=== PATIENT | female | born 1965 | race Caucasian/White ===

== ENCOUNTER 2018-03-18 21:35 | Observation (INO) ==
[2018-03-18 22:08] LABS: Basophils % 0.1 %; Eosinophils # 0.1 K/mcL (0.0-0.6); Eosinophils % 0.8 %; Hematocrit 40.6 % (35.3-44.9); Hemoglobin 13.6 g/dL (11.5-15.4); Immature Granulocytes % 0.7 % (0-4); Lymphocytes # 1.5 K/mcL (0.6-4.6); Lymphocytes % 16.3 %; Mean Corpuscular HGB Conc 33.5 g/dL (31.6-35.5); Mean Corpuscular Hemoglobin 30.4 pg (28.0-33.3); Mean Corpuscular Volume 90.6 fL (83.0-100.0); Mean Platelet Volume 9.3 fL (9.4-12.4); Monocytes # 0.4 K/mcL (0.0-1.3); Monocytes % 4.9 %; Neutrophils # 6.9 K/mcL (1.6-8.9); Platelet Count 179 K/mcL (140-400); Red Blood Count 4.48 M/mcL (3.82-4.97); Red Cell Distribution Width 13.2 % (11.5-14.5); Segmented Neutrophils % 77.2 %
[2018-03-18 22:14] LABS: Prothrombin Time 11.2 Seconds (9.4-12.1)
[2018-03-18 22:17] LABS: Activated Partial Thrombo Time 29.2 Seconds (26.0-36.0)
--- NOTE | 2018-03-18 22:18 | Emergency Department Note ---
Disposition Clinical Impression: Palpitations Chest pain Qualifiers: Chest pain type: unspecified Qualified Code(s): R07.9 - Chest pain, unspecified Disposition: Admitted As Inpatient Condition: Fair Referrals: Bala Barrera MD [Primary Care Provider] - Forms: ED Satisfaction Letter Time of Disposition: 23:20 Chest Pain HPI - General Chief Complaint: ED Chest Pain Stated Complaint: cp Time Seen by Provider: 03/18/18 21:37 Source: patient Limitations: no limitations - History of Present Illness HPI Narrative: Patient is a 53-year-old female with a past medical history of hyperparathyroidism, high cholesterol, fibromyalgia, manic depression, chronic kidney stones, and SVT which was treated with an ablation 2 years ago in 2016. She presents today after she had an episode where she felt like her heart was racing at 9 PM which was accompanied by some chest pain in her left chest that radiated up into her jaw and down into her left arm rated as a 9 out of 10 in severity lasting seconds and accompanied by shortness of breath. She denies diaphoresis nausea vomiting and abdominal pain. She states that she has had a lithotripsy yesterday for some kidney stones. But was feeling pretty great today until this happened. She also notes that over the last few weeks she has had several headaches and when she checks her blood pressure is elevated, she also states that her blood pressure she remembers is being 195/110 regular before her lithotripsy yesterday. She denies fevers or chills headache abdominal pain nausea vomiting diarrhea constipation. She was never a smoker she does not drink and she denies any illicit drugs including marijuana. Patient took an aspirin before she came into the department. Severity scale (1-10): 1 - Related Data Allergies Allergy/AdvReac Type Severity Reaction Status Date / Time No Known Allergies Allergy Verified 03/18/18 21:45 Constitutional: Denies: fever, chills, weakness, weight change ENT ED: Denies: throat pain Cardiovascular: Reports: chest pain, palpitations Respiratory: Denies: cough, dyspnea, wheezes Gastrointestinal: Denies: abdominal pain, nausea, vomiting, diarrhea, constipation Genitourinary: Reports: urgency. Denies: dysuria, frequency Neurological: Denies: headache, weakness, numbness, paresthesias Chest Pain PMH - Past Medical History Medical history: Reports: hyperlipidemia, myocardial infarction, SVT - Social History Smoking Status: Never smoker Alcohol use: Reports: none Drug use: Reports: none Physical Exam - General Limitations: no limitations General appearance: alert - Head Head exam: atraumatic, normocephalic - Eye Eye exam: Present: normal appearance, PERRL - ENT ENT exam: normal exam, normal oropharynx, mucous membranes moist - Neck Neck exam: Present: normal inspection - Chest Chest inspection: Present: normal inspection, symmetric chest wall rise. Absent : tenderness, rash - Respiratory Respiratory exam: Present: normal lung sounds bilaterally. Absent: respiratory distress, wheezes - Cardiovascular Cardiovascular exam: Present: regular rate, normal rhythm - Expanded Cardiovascular Exam Peripheral pulses: 2+: radial (R), radial (L), dorsalis pedis (R), dorsalis pedis (L) - Abdominal Exam Abdominal exam: Present: soft, Non-Tender, normal bowel sounds. Absent: tenderness, distention - Neurological Exam Neurological exam: Present: alert, oriented X3 - Psychiatric Psychiatric exam: Present: normal affect, normal mood - Skin Skin exam: Present: warm, dry, intact Course Course Narrative: Patient presents tonight after her first episode of a rapid heart rate since having her ablation in 2015, this episode lasted for a few seconds and she is now presenting to the emergency department with a normal EKG. She is no longer experiencing any chest pain, and her heart rate is within normal limits. We will perform a chest pain workup to rule out any acute causes. We will then instruct her to follow up with her primary care physician and her petrophysical engineer for further management. - Reevaluation(s) Reevaluation #1: After informing the patient that her workup was largely normal, she related to me that she is very concerned because she has never had pain with any of her previous episodes and she would prefer to be admitted for observation in the event that she has another episode of the fast heart rate. Vital Signs Temperature 98.1 F 03/18/18 21:40 Pulse Rate 85 03/18/18 21:40 Respiratory Rate 16 03/18/18 21:40 Blood Pressure 148/92 03/18/18 21:40 O2 Sat by Pulse Oximetry 100 03/18/18 21:40 Temperature 98.1 F 03/18/18 21:40 Pulse Rate 85 03/18/18 21:40 Respiratory Rate 16 03/18/18 21:40 Blood Pressure 148/92 03/18/18 21:40 O2 Sat by Pulse Oximetry 100 03/18/18 21:40 Oxygen Delivery Oxygen Delivery Room Air Chest Pain - MDM Narrative Medical decision making narrative: Patient presented after she felt like her heart was racing. Her EKG in the department did not show evidence of ischemia, her chest x-ray was normal, and her troponin was negative. While it does not appear that she is having an acute heart attack right now, she has never had any pain with these episodes before and she is very concerned that she will have another episode. She would prefer to be admitted so that we can keep her on the heart monitor and intervene in case something happens. Pt has a Heart Score of 4 which is mildly concerning given her history. Will discuss with admitting physician and express concerns for serial troponins. - Medical Records Medical records reviewed: Yes I reviewed the patient's medical records. - Lab Data Lab results reviewed: Yes I reviewed the patient's lab results. Result diagrams: 03/18/18 22:05 03/18/18 22:05 Lab Results 03/18/18 03/18/18 03/18/18 Range/Units 21:55 22:05 22:05 WBC 8.9 (4.3-11.1) K/mcL RBC 4.48 (3.82-4.97) M/mcL Hgb 13.6 (11.5-15.4) g/dL Hct 40.6 (35.3-44.9) % MCV 90.6 (83.0-100.0) fL MCH 30.4 (28.0-33.3) pg MCHC 33.5 (31.6-35.5) g/dL RDW 13.2 (11.5-14.5) % Plt Count 179 (140-400) K/mcL MPV 9.3 L (9.4-12.4) fL Immature Gran % 0.7 (0-4) % Seg Neutrophils % 77.2 % Lymphocytes % 16.3 % Monocytes % 4.9 % Eosinophils % 0.8 % Basophils % 0.1 % Neutrophils # 6.9 (1.6-8.9) K/mcL Lymphocytes # 1.5 (0.6-4.6) K/mcL Monocytes # 0.4 (0.0-1.3) K/mcL Eosinophils # 0.1 (0.0-0.6) K/mcL Basophils # 0.0 (0.0-0.2) K/mcL PT 11.2 (9.4-12.1) Seconds INR 1.0 APTT 29.2 (26.0-36.0) Seconds Sodium 137 (136-145) mEq/L Potassium 3.9 (3.5-5.1) mEq/L Chloride 103 (98-107) mEq/L Carbon Dioxide 27 (23-29) mEq/L BUN 12 (6-20) mg/dL Creatinine 0.83 (0.60-1.20) mg/dL Est GFR ( Amer) > 60 (> 60) Est GFR (Non-Af Amer) > 60 (> 60) BUN/Creatinine Ratio 14 (6-26) Glucose 107 H (70-105) mg/dL Calculated Osmolality 284 (280-300) Calcium 9.1 (8.6-10.3) mg/dL Phosphorus 1.7 L (2.7-4.5) mg/dL Magnesium 2.1 (1.6-2.6) mg/dL Troponin I < 0.03 (< 0.04) ng/mL - Radiology Data Radiology results reviewed: Yes I reviewed the patient's radiology results. Chest X-Ray 03/18/18 21:55 IMPRESSION: Punctate increased density in the apices. Parenchymal scarring is favored over a tiny nodules. Compared with prior imaging if available No acute abnormality otherwise D/ / Clyde Hull / Clyde Hull Interpreting Provider: Clyde Hull - EKG Data EKG attestation: Yes I reviewed and interpreted this EKG. EKG results narrative: Rate of 81, rhythm is sinus, axis is normal. NC interval and QTc interval are all within normal limits. No evidence of ST elevation or depression. RSR' in lead V1. Heart Score - Score History: Moderately Suspicious EKG: Non Specific repolarisation Disturbance Age: 45-65 Risk Factors: 1-2 risk factors Troponin: Less than normal limit HEART Score Total: 4 Attestation Statement - Attestation Attestation: I, Tyron Luna DO, examined this patient [id number] and my medical decision-making was reviewed with Dr. Pavithra Nix, Resident Physician. I agree with the documented findings, disposition and treatment plan as described except to the extent set forth below. Please see my progress notes for details.
[2018-03-18 22:20] LABS: BUN/Creatinine Ratio 14 (6-26); Blood Urea Nitrogen 12 mg/dL (6-20); Calcium 9.1 mg/dL (8.6-10.3); Carbon Dioxide 27 mEq/L (23-29); Chloride 103 mEq/L (98-107); Glucose 107 mg/dL (70-105); Magnesium 2.1 mg/dL (1.6-2.6); Osmolality,Calculated 284 (280-300); Phosphorous 1.7 mg/dL (2.7-4.5); Potassium 3.9 mEq/L (3.5-5.1); Sodium 137 mEq/L (136-145); eGFR For Non-African Americans > 60 (> 60)
[2018-03-18 22:21] LABS: Troponin I < 0.03 ng/mL (< 0.04)
--- NOTE | 2018-03-18 22:41 | Emergency Department Note ---
Disposition Clinical Impression: Chest pain, Palpitations Disposition: Admitted As Inpatient Condition: Fair Referrals: Bala Barrera MD [Primary Care Provider] - Forms: ED Satisfaction Letter Time of Disposition: 23:16 General Adult HPI - General Chief complaint: ED Chest Pain Stated complaint: cp Time Seen by Provider: 03/18/18 21:37 Source: patient Limitations: no limitations - History of Present Illness Pain Scale: 1 - Related Data Allergies Allergy/AdvReac Type Severity Reaction Status Date / Time No Known Allergies Allergy Verified 03/18/18 21:45 Constitutional: Denies: fever, chills, weakness, weight change ENT ED: Denies: throat pain Cardiovascular: Reports: chest pain, palpitations Respiratory: Denies: cough, dyspnea, wheezes Gastrointestinal: Denies: abdominal pain, nausea, vomiting, diarrhea, constipation Genitourinary: Reports: urgency. Denies: dysuria, frequency Neurological: Denies: headache, weakness, numbness, paresthesias Past Medical History - Past Medical History Medical history: Reports: hyperlipidemia, myocardial infarction, SVT - Social History Smoking Status: Never smoker Alcohol use: Reports: none Drug use: Reports: none Physical Exam - General Limitations: no limitations General appearance: alert Course Vital Signs Temperature 98.1 F 03/18/18 21:40 Pulse Rate 85 03/18/18 21:40 Respiratory Rate 16 03/18/18 21:40 Blood Pressure 148/92 03/18/18 21:40 O2 Sat by Pulse Oximetry 100 03/18/18 21:40 Temperature 98.1 F 03/18/18 21:40 Pulse Rate 85 03/18/18 21:40 Respiratory Rate 16 03/18/18 21:40 Blood Pressure 148/92 03/18/18 21:40 O2 Sat by Pulse Oximetry 100 03/18/18 21:40 Oxygen Delivery Oxygen Delivery Room Air Medical Decision Making - Lab Data Result diagrams: 03/18/18 22:05 03/18/18 22:05 Lab Results 03/18/18 03/18/18 03/18/18 Range/Units 21:55 22:05 22:05 WBC 8.9 (4.3-11.1) K/mcL RBC 4.48 (3.82-4.97) M/mcL Hgb 13.6 (11.5-15.4) g/dL Hct 40.6 (35.3-44.9) % MCV 90.6 (83.0-100.0) fL MCH 30.4 (28.0-33.3) pg MCHC 33.5 (31.6-35.5) g/dL RDW 13.2 (11.5-14.5) % Plt Count 179 (140-400) K/mcL MPV 9.3 L (9.4-12.4) fL Immature Gran % 0.7 (0-4) % Seg Neutrophils % 77.2 % Lymphocytes % 16.3 % Monocytes % 4.9 % Eosinophils % 0.8 % Basophils % 0.1 % Neutrophils # 6.9 (1.6-8.9) K/mcL Lymphocytes # 1.5 (0.6-4.6) K/mcL Monocytes # 0.4 (0.0-1.3) K/mcL Eosinophils # 0.1 (0.0-0.6) K/mcL Basophils # 0.0 (0.0-0.2) K/mcL PT 11.2 (9.4-12.1) Seconds INR 1.0 APTT 29.2 (26.0-36.0) Seconds Sodium 137 (136-145) mEq/L Potassium 3.9 (3.5-5.1) mEq/L Chloride 103 (98-107) mEq/L Carbon Dioxide 27 (23-29) mEq/L BUN 12 (6-20) mg/dL Creatinine 0.83 (0.60-1.20) mg/dL Est GFR ( Amer) > 60 (> 60) Est GFR (Non-Af Amer) > 60 (> 60) BUN/Creatinine Ratio 14 (6-26) Glucose 107 H (70-105) mg/dL Calculated Osmolality 284 (280-300) Calcium 9.1 (8.6-10.3) mg/dL Phosphorus 1.7 L (2.7-4.5) mg/dL Magnesium 2.1 (1.6-2.6) mg/dL Troponin I < 0.03 (< 0.04) ng/mL Attestation Statement - Attestation Attestation: I, Tyron Luna DO, examined this patient [id number] and my medical decision-making was reviewed with Dr. Pavithra Nix, Resident Physician. I agree with the documented findings, disposition and treatment plan as described except to the extent set forth below. Please see my progress notes for details. 53-year-old female presents to emergency room with a complaint of palpitations. She has had these symptoms on and off over the years. She was treated with a coronary ablation approximately 2 years ago secondary to SVT. Patient has not had any significant symptoms since that event. Today she did get a verbal altercation with her daughter and then several hours later had an acute onset of sustained palpitations and severe chest pain. The concern for her at this point is that she has never had chest pain in the past with the events in the events typically do not last that long. She typically is able to vagal herself out of the palpitations and today took much longer than normal. Patient presentation here is in no distress she is resting comfortably in the bed she denies any chest pain shortness of breath headache vision changes nausea vomiting or diarrhea. No fevers no chills. Patient has not been started a new medications. She does have parathyroid disease been no thyroid dysfunction issues in the past. EKG shows sinus rhythm initially with a poor R-wave progression. This is compared to previous EKGs and appears to be stable. Patient has denying any complaints or issues at this point. After lengthy discussion at the bedside the patient is concerned and would not of come in today she did not have the pain. This is a new symptom for her. No specific history of coronary artery disease in herself but she has not had a specific cardiac evaluation in greater than a year. Aspirin was undertaken prior to coming in. She is asymptomatic now. Chest x-ray CBC chemistry EKG and troponin will be collected and disposition will be determined. Patient is concerning with a heart score 4 based on age concerning symptoms and presentation with the chest pain as well as EKG abnormality and to risk factors. Discussion was had with possible admission versus her thoughts on being discharged home and patient does not feel comfortable going home at this time. She is concerned something else is going on because she has never had symptoms like this. Disposition to be determined once full workup and treatment course have been established. See detailed documentation the physical exam, medical intervention, medical decision-making disposition the resident physician's note. [id number] Patient has negative chest x-ray EKG and troponin. She has not had any symptom reemergence will here. Patient is still not feeling comfortable to go home considering the chest pain and she does have some moderate risk based on her heart score as well as a presentation. It essentially will be admitted for a low risk cardiac evaluation and ACS rule out. Patient received aspirin and does not require any other medical intervention at this time. Hospitalist has been paged Heart Score - Score History: Moderately Suspicious EKG: Non Specific repolarisation Disturbance Age: 45-65 Risk Factors: 1-2 risk factors Troponin: Less than normal limit HEART Score Total: 4
[2018-03-19] MEDS ORDERED: *HR* HYDROcodone/Acet 7.5/325 mg TABLET PO PRN (01:12)
[2018-03-19] MEDS ORDERED: traZODone 50 MG TABLET PO SCH ×2 (01:15→01:20)
[2018-03-19] MEDS ORDERED: ALPRAZolam 0.25 MG TABLET PO PRN (01:20)
--- NOTE | 2018-03-19 01:24 | Internal Med History&Physical ---
Date of Encounter: 03/19/18 Time of Encounter: 01:19 Internal Medicine - H&P: HPI Chief complaint: Palpitations Admitted From: Home Plans for Post Hospital Care: Home History of present illness: Milagro Anderson is a 53-year-old woman with a history of fibromyalgia and SVT who underwent ablation 2 years ago and since then has been fine presenting to the emergency room now with a complaint of palpitations that commenced during dinnertime. Although it is documented that she had a verbal altercation with her daughter earlier in the day before this started she tells me that she was just preparing dinner and was at rest therefore it is unclear what exactly is the truth to her history. She states that she attempted vagal maneuvers by holding her breath in which he usually makes this subside the last time it occurred however there was no response to this. She went to lay down flat in her room however the palpitations continued at which time she was seen by her [id number] who is a nurse and stated that her pulse was beating too fast for her to even feel for it adequately. She is then brought into the ER at which time she became asymptomatic with EKG showing normal sinus rhythm and rate controlled. Her chest x-ray and troponin levels were unremarkable as were the rest of her blood work except a low phosphorus level. She denies being on any new medications and states that this has not occurred since her ablation episode. She expressed her desire to be observed overnight and she is concerned it may happen again. At this time she was lying comfortably in bed in no acute distress requesting her home medications for pain to be resumed. Past Med Surg Social Fam HX - Past Medical History Medical history: hyperlipidemia, SVT - Past Surgical History Additional surgical history: ablation 2 yrs ago - Social History Smoking Status: Never smoker Alcohol use: none Drug use: none Internal Medicine - H&P: Meds ALPRAZolam [Xanax 0.25 MG Tablet] 0.25 mg PO TID PRN 03/19/18 [History] Alendronate Sodium 70 mg PO QWEEK 03/19/18 [History] HYDROcodone/Acet 7.5/325 mg [[place] 7.5-325 mg] 1 tab PO QID 03/19/18 [History] Pregabalin [Lyrica] 75 mg PO BID 03/19/18 [History] Simvastatin [Zocor] 20 mg PO DAILY 03/19/18 [History] Solifenacin Succinate [Vesicare] 10 mg PO DAILY 03/19/18 [History] Trazodone HCl 150 mg PO HS 03/19/18 [History] Venlafaxine XR (24 HR) [Effexor XR] 150 mg PO DAILY 03/19/18 [History] 3 Allergy/AdvReac Type Severity Reaction Status Date / Time No Known Allergies Allergy Verified 03/18/18 21:45 All Systems PM: A 10-system review of systems was performed and is negative for pertinent findings except as documented above in the HPI. - Constitutional Vitals: Temp Pulse Resp BP Pulse Ox 98.4 F 73 18 161/93 99 03/19/18 00:35 03/19/18 00:35 03/19/18 00:35 03/19/18 00:35 03/19/18 00:35 Exam: Vitals: Reviewed General: Well-developed woman lying comfortably in bed in no acute distress Skin: Warm and supple HEENT: Moist mucous membranes. No conjunctivae pallor. Neck: No lymphadenopathy. No JVD. No carotid bruits. No palpable thyroid. Chest: Normal thoracic expansion. Normal breath sounds. Clear to auscultation. Heart: Normal S1 & S2; rhythmic. No rubs or murmurs. Abdomen: Non-distended, soft and non-tender to palpation. No peritoneal reaction. Extremities: No clubbing, cyanosis or edema. No calf tenderness. Normal distal pulses. Neurological: Awake, alert and oriented to person, place and time. No focal deficits. Psych: Affect appropriate. Internal Med - H&P Results - Labs CBC & Chem 7: 03/18/18 22:05 03/18/18 22:05 - Assessment and plan (1) Palpitations Current Visit: Yes Status: Acute Assessment and plan: Unclear etiology. Possible SVT which has gone unwitnessed as we do not have a telemetry strip and her EKG did not confirm this. It has not recurred and she remained clinically and hemodynamically stable. She states that she follows with cardiology at [place] and she plans to have follow-up with them once she is discharged in the morning barring any complications overnight. For now she should remain on telemetry monitoring we shall intervene if necessary. (2) Fibromyalgia Current Visit: Yes Status: Acute Assessment and plan: Currently stable and we shall resume her home medications. (3) Chronic pain syndrome Current Visit: Yes Status: Acute Assessment and plan: Currently stable and we shall resume her home medications. (4) DVT prophylaxis Current Visit: Yes Status: Acute Assessment and plan: heparin ordered. - Time Spent With Patient Total time spent is greater than 50% in coordination of care (as documented) at patient's floor/unit and/or counseling patient: Greater than 35 minutes
[2018-03-19] MEDS ORDERED: TRAZODONE HCL 150 MG PO SCH (01:30)
[2018-03-19] MEDS ORDERED: Pregabalin 75 MG CAPSULE PO ONE (01:45)
[2018-03-19] MEDS: traZODone 50 MG TABLET PO SCH ×2 (02:13→21:02)
[2018-03-19] MEDS ORDERED: *HR* Adenosine 6 MG/2 ML VIAL IVP ONE ×3 (03:53→04:30)
[2018-03-19] MEDS ORDERED: *HR* Metoprolol 5 MG/5 ML VIAL IVP ONE ×2 (03:54→04:00)
--- NOTE | 2018-03-19 04:10 | Event Note ---
Date of Encounter: 03/19/18 Time of Encounter: 04:08 Rapid response was called on the patient as she was seen to go into SVT on the tele monitor while she was asleep. Her heart rate went up to 200 with a narrow complex rhythm. She remained clinically stable stating that she did not feel it as she was fast asleep. We administered 6-6mg of adenosine with poor response and 2 doses of 5mg metoprolol IVP which subsequently brought her heart rate down to the 80s. Blood pressure remained stable during this period. Will start oral beta junior therapy now for sustenance pending cardiology evaluation.
[2018-03-19 04:39] LABS: BUN/Creatinine Ratio 13 (6-26); Blood Urea Nitrogen 9 mg/dL (6-20); Carbon Dioxide 25 mEq/L (23-29); Chloride 111 mEq/L (98-107); Glucose 98 mg/dL (70-105); Magnesium 2.1 mg/dL (1.6-2.6); Osmolality,Calculated 295 (280-300); Potassium 3.4 mEq/L (3.5-5.1); Sodium 143 mEq/L (136-145); eGFR For Non-African Americans > 60 (> 60)
[2018-03-19 04:40] LABS: Calcium 8.5 mg/dL (8.6-10.3)
[2018-03-19] MEDS ORDERED: Potassium Chloride Elixir 20 MEQ/15 ML UDC PO ONE (05:14)
[2018-03-19] MEDS: *HR* Heparin 5,000 UNIT/ML VIAL SQ SCH ×3 (06:04→21:03)
[2018-03-19] MEDS: Venlafaxine XR (24 HR) 150 MG CAP.ER.24H PO SCH (09:15)
[2018-03-19] MEDS: Ibuprofen 800 MG TABLET PO PRN ×2 (09:15→21:28)
[2018-03-19] MEDS: Pregabalin 75 MG CAPSULE PO SCH ×2 (09:15→21:01)
--- NOTE | 2018-03-19 10:21 | Event Note ---
Date of Encounter: 03/19/18 Time of Encounter: 10:16 Patient seen and evaluated at bedside. reports doing well, denies palpitation, chest pain or shortness of breath. Patient reports that she has a Hx SVT and had an ablation done about 2 years about at [place]. After the ablation she has had several episodes of palpitations but nothing like before coming to the hospital last night. Patient also reports being on atenolol before the ablation but the medication was discontinued after the procedure. Patient is hemodynamically stable. Cardiology has been consulted. Electrolytes replaced. Continue Telemetry monitoring.
--- NOTE | 2018-03-19 11:32 | Cardiology Consult Note ---
<Reji Britt R - Last Filed: 03/19/18 11:29> Date of Encounter: 03/19/18 Time of Encounter: 11:29 Assessment and Plan (1) SVT (supraventricular tachycardia) Current Visit: Yes Status: Acute Known hx of SVT s/p ablation in 2016 at [facility]. Previously on Atenolol, stopped after ablation. Presented with palpitations, SR on admission ECG. Episode of SVT confirmed on telemetry from that broke with adenosine and IV lopressor. Hospitalist started PO Lopressor 25mg BID. K 3.4--replace. Mag and TSH WNL. Check TTE to evaluate structure and function. Pt reports she still follows with EP at [facility] and prefers to stay with them. Continue BB, follow-up with [facility] as outpt. If no significant findings on TTE, will sign off. Discussion w patient/family: The assessment and plan as outlined above was discussed with the patient and/or family members who expressed understanding and agreement. All questions were answered. Thank you for involving us in the care of your patient. Please call with any questions. I will discuss all the above with Dr. Grigsby and make changes as necessary. History of Present Illness Consult date: 03/19/18 Consult reason: SVT Chief complaint: palpitations History of present illness: Ms. Anderson is a 53 year old female with PMH of fibromyalgia and SVT s/p ablation in 2016 at [facility] that presented to ED for palpitations. She states that she attempted vagal maneuvers by holding her breath, but had no relief. Symptoms ended up resolving and by the time she arrived to ED she was SR. She expressed her desire to be observed overnight and she is concerned it may happen again. Reports being on Atenolol previously, but it was stopped after her ablation. Overnight she had episode of SVT, confirmed on telemetry that broke after she was given adenosine and IV lopressor. Cardiology consulted for further recs. Pt denies chest pain or dyspnea. Past Med Surg Social Fam HX - Past Medical History Medical history: hyperlipidemia, SVT Psychiatric history: anxiety, other - Past Surgical History Additional surgical history: ablation 2 yrs ago - Social History Smoking Status: Never smoker Alcohol use: none Drug use: none - Family History Mother Living Status: Age at : 72 Cause of : lung cancer Hx Family Cardiac Disorders: Yes (ablasion, NH, HTN) Hx Family Cancer: Yes (lung) Brother Hx Family Cancer: Yes (brain tumor) Medications and Allergies ALPRAZolam [Xanax 0.25 MG Tablet] 0.25 mg PO TID PRN 03/19/18 [History] Alendronate Sodium 70 mg PO QWEEK 03/19/18 [History] HYDROcodone/Acet 7.5/325 mg [[place] 7.5-325 mg] 1 tab PO QID 03/19/18 [History] Pregabalin [Lyrica] 75 mg PO BID 03/19/18 [History] Simvastatin [Zocor] 20 mg PO DAILY 03/19/18 [History] Solifenacin Succinate [Vesicare] 10 mg PO DAILY 03/19/18 [History] Trazodone HCl 150 mg PO HS 03/19/18 [History] Venlafaxine XR (24 HR) [Effexor XR] 150 mg PO DAILY 03/19/18 [History] 3 Allergy/AdvReac Type Severity Reaction Status Date / Time No Known Allergies Allergy Verified 03/18/18 21:45 All Systems Review: The remainder of the systems were reviewed and are negative - Cardiovascular Cardiovascular: palpitations Physical Examination Vital Signs Temp Pulse Resp BP Pulse Ox 03/19/18 07:13 98.2 F 67 18 114/66 99 03/19/18 04:08 84 132/84 99 03/19/18 04:03 108 180/94 99 03/19/18 03:51 218 104/60 97 03/19/18 03:44 97.9 F 90 18 165/81 98 03/19/18 00:35 98.4 F 73 18 161/93 99 03/18/18 23:21 73 16 145/88 98 03/18/18 21:40 98.1 F 85 16 148/92 100 Intake and Output 03/18/18 03/19/18 03/19/18 23:59 07:59 15:59 Other: Weight 53.524 kg 53.5 kg Patient Weight 03/19/18 23:59 Weight 53.5 kg General: Conversant, No Apparent Distress HEENT: Atraumatic, Normocephaly, Mucus Membranes Moist Neck: No JVD, Normal carotid pulses Cardiac: Reg Rate and Rhythm, Normal S1 and S2, No Murmur Lungs: Normal Breath Sounds, No Wheeze, Rales, Rhonchi Neuro: Alert and responsive, No focal deficits noted Abdomen: Soft, Non-Tender Skin: No rashes noted on visualized skin Musculoskeletal: No Chest Wall Tenderness Extremities: No Clubbing, No Cyanosis, No Edema, Normal Pulses Results 03/18/18 22:05 03/19/18 04:10 Lab Results 03/19/18 03/19/18 04:03 04:10 Sodium 143 Potassium 3.4 L Chloride 111 H Carbon Dioxide 25 BUN 9 Creatinine 0.67 Glucose 98 Calcium 8.5 L Magnesium 2.1 Troponin I < 0.03 Short CBC 03/18/18 Range/Units 22:05 WBC 8.9 (4.3-11.1) K/mcL Hgb 13.6 (11.5-15.4) g/dL Hct 40.6 (35.3-44.9) % Plt Count 179 (140-400) K/mcL Neutrophils # 6.9 (1.6-8.9) K/mcL BMP 03/19/18 03/18/18 Range/Units 04:10 22:05 Sodium 143 137 (136-145) mEq/L Potassium 3.4 L 3.9 (3.5-5.1) mEq/L Chloride 111 H 103 (98-107) mEq/L Carbon Dioxide 25 27 (23-29) mEq/L BUN 9 12 (6-20) mg/dL Creatinine 0.67 0.83 (0.60-1.20) mg/dL Glucose 98 107 H (70-105) mg/dL Calcium 8.5 L 9.1 (8.6-10.3) mg/dL Cardiac Enzymes 03/19/18 03/18/18 Range/Units 04:03 22:05 Troponin I < 0.03 < 0.03 (< 0.04) ng/mL Impressions Chest X-Ray 03/18/18 21:55 IMPRESSION: Punctate increased density in the apices. Parenchymal scarring is favored over a tiny nodules. Compared with prior imaging if available No acute abnormality otherwise D/ / Clyde Hull / Clyde Hull Interpreting Provider: Clyde Hull Active Medications Hydrocodone Bitart/Acetaminophen ([place] 7.5-325 Mg) 1 tab PO TID PRN PRN Reason: Pain Stop: 09/18/18 01:13 Alprazolam (Xanax) 0.25 mg PO TID PRN; Protocol PRN Reason: Anxiety Stop: 09/18/18 01:21 Heparin Sodium (Porcine) (Heparin) 5,000 unit SQ Q8HCO SILVIA Stop: 09/18/18 06:01 Last Admin: 03/19/18 06:04 Dose: 5,000 unit Ibuprofen (Motrin) 800 mg PO Q8HR PRN; Protocol PRN Reason: Pain Stop: 09/18/18 01:13 Last Admin: 03/19/18 09:15 Dose: 800 mg Metoprolol Tartrate (Lopressor) 25 mg PO BID SILVIA Stop: 09/18/18 04:13 Last Admin: 03/19/18 09:15 Dose: 25 mg Oxybutynin Chloride (Ditropan) 5 mg PO TID SILVIA Stop: 09/18/18 09:01 Last Admin: 03/19/18 09:15 Dose: 5 mg Pregabalin (Lyrica) 75 mg PO BID SILVIA Stop: 09/18/18 09:01 Last Admin: 03/19/18 09:15 Dose: 75 mg Simvastatin (Zocor) 20 mg PO DAILY SILVIA PRN Reason: Protocol Stop: 09/18/18 09:01 Last Admin: 03/19/18 09:15 Dose: 20 mg Trazodone HCl (Trazodone) 150 mg PO HS [facility] Stop: 09/18/18 01:46 Last Admin: 03/19/18 02:13 Dose: 150 mg Venlafaxine HCl (Effexor Xr) 150 mg PO DAILY SILVIA PRN Reason: Protocol Stop: 09/18/18 09:01 Last Admin: 03/19/18 09:15 Dose: 150 mg - EKG Interpretation EKG results cardiology: personally reviewed, other (12 hr tele AVG HR 76, SR with SVT episode from [id number]) Consult Discharge Plan - Plan Referrals: Bala Barrera MD [Primary Care Provider] - <Melba Grigsby - Last Filed: 03/19/18 15:51> Date of Encounter: 03/19/18 - Attending Attestation Patient was seen and evaluated independently by me. Findings, assessment and plan were discussed at length with patient, questions answered. Agree with nurse practitioner's documentation. Addition as follows, 53 yoCF ho SVT s/p RFA then off BB. Recurrent palpitations 1 month. P/w long lasting SVT w/o response to vagal maneuvers. Back to SR in ED, recurred overnight during sleep, responded to adenosine w/o hypotension. Now in SR on lopressor. No complaints. VSS, NAD, HEALTH CARE ASSISTANT, RRR, abd ND NT, no LE edema. TSH wnl, K 3s. admit unintentional wt loss 60lbs in 1 yr A: Recurrent SVT off BB s/p RFA of unclear triggers, unintentional wt loss with hypokalemia P: agree with BB if recurrence, rec EPS with RFA unintentional wt loss workup with hypokalemia per primary team and outpatient. Melba Grigsby MD, PhD Assessment and Plan Discussion w patient/family: The assessment and plan as outlined above was discussed with the patient and/or family members who expressed understanding and agreement. All questions were answered. Thank you for involving us in the care of your patient. Please call with any questions. History of Present Illness History of present illness: Ms. Anderson is a 53 year old female All Systems Review: The remainder of the systems were reviewed and are negative Physical Examination Vital Signs, Last 4 Hours Temp Pulse Resp BP Pulse Ox 03/19/18 11:46 97.6 F 69 18 106/67 96 Results 03/18/18 22:05 03/19/18 04:10 Lab Results 03/19/18 03/19/18 04:03 04:10 Sodium 143 Potassium 3.4 L Chloride 111 H Carbon Dioxide 25 BUN 9 Creatinine 0.67 Glucose 98 Calcium 8.5 L Magnesium 2.1 Troponin I < 0.03
[2018-03-19] MEDS ORDERED: *HR* Adenosine 6 MG/2 ML SYRINGE IVP ONE (15:14)
[2018-03-19] MEDS ORDERED: Acetaminophen 325 MG TABLET PO PRN (21:07)
[2018-03-20 05:41] LABS: BUN/Creatinine Ratio 18 (6-26); Blood Urea Nitrogen 15 mg/dL (6-20); Calcium 8.7 mg/dL (8.6-10.3); Carbon Dioxide 27 mEq/L (23-29); Chloride 110 mEq/L (98-107); Glucose 95 mg/dL (70-105); Magnesium 2.2 mg/dL (1.6-2.6); Osmolality,Calculated 291 (280-300); Phosphorous 3.1 mg/dL (2.7-4.5); Potassium 4.2 mEq/L (3.5-5.1); Sodium 140 mEq/L (136-145); eGFR For Non-African Americans > 60 (> 60)
[2018-03-20] MEDS: *HR* Heparin 5,000 UNIT/ML VIAL SQ SCH (06:25)
[2018-03-20] MEDS: Pregabalin 75 MG CAPSULE PO SCH (09:19)
[2018-03-20] MEDS: Venlafaxine XR (24 HR) 150 MG CAP.ER.24H PO SCH (09:19)
[2018-03-20 11:25] VITALS: BP 112/71
--- NOTE | 2018-03-20 13:12 | Internal Med Progress Note ---
Hospitalist Progress Note - Encounter Date of Encounter: 03/20/18 - Exam Vitals: Temp Pulse Resp BP Pulse Ox 98.6 F 53 16 112/71 100 03/20/18 11:25 03/20/18 11:25 03/20/18 11:25 03/20/18 11:25 03/20/18 11:25 - Time Spent with Patient Total time spent is greater than 50% in coordination of care (as documented) at patient's floor/unit and/or counseling patient: Internal Medicine: Result - Labs CBC & Chem 7: 03/18/18 22:05 03/20/18 04:30 Labs: BMP 03/20/18 04:30 Sodium 140 Potassium 4.2 Chloride 110 H Carbon Dioxide 27 BUN 15 Creatinine 0.85 Glucose 95 Calcium 8.7 - ABG Interpretation ABG results: PT/INR, D-dimer PT 11.2 Seconds (9.4-12.1) 03/18/18 21:55 - Impressions Impressions Echocardiogram 03/19/18 11:38 Impressions: LVEF 60-65%. Normal LV chamber size, wall thickness and function. Mild left ventricular diastolic dysfunction. Normal right ventricular structure and function. No evidence of pulmonary hypertension. No significant valvular dysfunction. Left Ventricular Wall Motion: Rest Echo Findings All wall segments showed normal motion. Findings: Study Quality * Technically adequate exam. ECG Findings * Normal sinus rhythm. Left Ventricle * LVEF 60-65%. * Normal LV chamber size, wall thickness and function. * Mild left ventricular diastolic dysfunction. Right Ventricle * Normal right ventricular structure and function. Left Atrium * Mildly dilated left atrium. Right Atrium * Normal right atrial size. Aortic Valve * Aortic valve not well visualized. * No aortic regurgitation. * No aortic stenosis. Mitral Valve * Normal mitral valve structure and function. * No mitral regurgitation. * No mitral stenosis. Tricuspid Valve * Normal tricuspid valve structure and function. * Trace tricuspid regurgitation. * No evidence of pulmonary hypertension. Pulmonic Valve * Normal pulmonic valve structure and function. * No pulmonic regurgitation. Aorta * Normally sized aortic root. Pericardium * The pericardium appears normal. IVC * Normal IVC dimensions and inspiratory collapse. Pulmonary Artery * Normal visualized portions of the main pulmonary artery. Consult Discharge Plan - Plan Instructions: Supraventricular Tachycardia (DC) Additional Instructions: 1. Decrease caffeine intake 2. Eat high potassium food daily 3. Take new medicine metoprolol to control your heart rate. If you feel dizzy, check your blood pressure and heart rate. If top number of your blood pressure is less than 100 or heart rate is less than 45, do not take metoprolol and call you medicaid billing specialist for further instructions. 4. Discuss with your primary doctor about further work up of significant weight loss. Referrals: Bala Barrera MD [Primary Care Provider] - Prescriptions: Metoprolol [Lopressor] 25 mg PO BID 30 Days #60 tablet
--- NOTE | 2018-03-20 13:24 | Discharge Summary ---
- NOTES TO OUTPATIENT PROVIDER Notes to Outpatient Provider: Outpatient cardiology / EP follow up in 2 weeks. Started on metoprolol for SVT. Date of Encounter: 03/20/18 Time of Encounter: 13:23 - Discharge Diagnosis (1) Chest pain Priority: Secondary Status: Acute Qualifiers: Chest pain type: unspecified Qualified Code(s): R07.9 - Chest pain, unspecified (2) Palpitations Priority: Secondary Status: Acute (3) SVT (supraventricular tachycardia) Priority: Primary Status: Acute Hospital course: Milagro Anderson is a 53-year-old woman with a history of fibromyalgia and SVT who underwent ablation 2 years ago and since then has been fine until now. She presented to the emergency room with palpitations that didn't resolve with vagal maneuvers by holding her breath. She came to ER and was in NSR by the time she arrived. Her chest x-ray and troponin levels were unremarkable as were the rest of her blood work except a low potassium level. (1) Paroxysmal SVT - Hx prior ablation 2 years ago - Occurred at home, then resolved by the time of arrival to ER, then recurred on floor with 20 bpm, required adenosine and IV metoprolol - Started on metoprolol 25 PO BID, with no further recurrence - TTE showed normal EF, TSH normal - Follows with [facility], and advised to call for follow up appt - Instructed to increase potassium rich food in her diet (K was 3.4 on admission ) (2) Unintentional weight loss 60 lb - would defer work up to outpatient setting Other medical problems remained stable. No other changes made in her medicines. Discharge discussed with: patient, family, nurse - Time Spent with Patient Total time spent providing and/or coordinating discharge services: Greater than 30 minutes - Discharge Medications Prescriptions: Metoprolol [Lopressor] 25 mg PO BID 30 Days #60 tablet Home Medications: ALPRAZolam [Xanax 0.25 MG Tablet] 0.25 mg PO TID PRN 03/19/18 [History] Alendronate Sodium 70 mg PO SA 03/19/18 [History] Calcium Carbonate/Vitamin D3 [Calcium 600+D Softgel] 1 tab PO DAILY 03/19/18 [ History] Cyclosporine [Restasis] 1 drop OP DAILY 03/19/18 [History] Gluc 2Kcl/Chondr/Dionicio Hy/Hy AC [Glucosamine & Chondroitin Cap] 1 each PO DAILY 03/19/18 [History] HYDROcodone/Acet 7.5/325 mg [[place] 7.5-325 mg] 1 tab PO QID 03/19/18 [History] Ibuprofen [Ibuprofen] 800 mg PO TID PRN 03/19/18 [History] Multivitamin [One Daily Essential] 1 each PO DAILY 03/19/18 [History] Pantoprazole Sodium [Pantoprazole Sodium] 40 mg PO DAILY 03/19/18 [History] Pregabalin [Lyrica] 75 mg PO BID 03/19/18 [History] Simvastatin [Zocor] 20 mg PO DAILY 03/19/18 [History] Solifenacin Succinate [Vesicare] 10 mg PO QAM 03/19/18 [History] Trazodone HCl 150 mg PO HS 03/19/18 [History] Venlafaxine XR (24 HR) [Effexor XR] 150 mg PO DAILY 03/19/18 [History] Metoprolol [Lopressor] 25 mg PO BID 30 Days #60 tablet 03/20/18 [Rx] Allergies/Adverse Reactions: 3 Allergy/AdvReac Type Severity Reaction Status Date / Time No Known Allergies Allergy Verified 03/19/18 15:54 Date of admission: 03/18/18 23:34 Primary care physician: Bala Barrera MD Consults: 03/19/18 04:14 Consult to Cardiology [CONS] Routine Comment: Consulting Provider: Cardiology [facility] Reason for Consult: Patient with a history of SVT s/p ablation in 2015 presenting with a reoccurences. 1st episode at home. Had another witnessed overnight requiring rapid response. Call Completed: No Discharging clinician: Chanel Mao Anticipated date of discharge: 03/20/18 - Constitutional Vitals: Temp Pulse Resp BP Pulse Ox 98.6 F 53 16 112/71 100 03/20/18 11:25 03/20/18 11:25 03/20/18 11:25 03/20/18 11:25 03/20/18 11:25 Exam: Vitals: Reviewed General: Well-developed woman lying comfortably in bed in no acute distress Skin: Warm and supple HEENT: Moist mucous membranes. No conjunctivae pallor. Neck: No JVD. Supple. Chest: Normal breath sounds. Clear to auscultation. No wheezes. Heart: Normal S1 & S2; rhythmic. No rubs or murmurs. Abdomen: Non-distended, soft and non-tender to palpation. No guarding or rebound Extremities: No clubbing, cyanosis or edema. Neurological: Awake, alert and oriented to person, place and time. No focal deficits. No dysarthria Psych: Affect appropriate. - Patient Status Disposition: Home, Self-Care Condition: Good Functional capacity at discharge: independent ambulation Overall status at discharge: patient is back to baseline - Discharge Instructions Instructions: Supraventricular Tachycardia (DC) Follow Up With: Bala Barrera MD [Primary Care Provider] - Additional Instructions: 1. Decrease caffeine intake 2. Eat high potassium food daily 3. Take new medicine metoprolol to control your heart rate. If you feel dizzy, check your blood pressure and heart rate. If top number of your blood pressure is less than 100 or heart rate is less than 45, do not take metoprolol and call you music typographer for further instructions. 4. Discuss with your primary doctor about further work up of significant weight loss. - Diet and Activity Activity: increase activity as tolerated Diet: advance to your usual diet
[2018-03-20] MEDS: Ibuprofen 800 MG TABLET PO PRN (14:55)
--- NOTE | 2018-03-21 21:50 | Electrocardiograph Report ---
[place] [id number] Test Date: 2018-03-18 Pat Name: Milagro Anderson Department: [id number] Room: 3B Gender: F Charge Account Clerk: : 1965 Requested By: Sahra Chamorro Order Number: [id number] Reading MD: Severiano Peterson Measurements Intervals [place] Rate: 81 P: 70 ID: [id number] QRS: 10 QRSD: 106 T: 35 QT: 386 QTc: 448 Interpretive Statements Sinus rhythm Possible RV conduction delay Electronically Signed On 03-21-2018 21:49:06 EDT by Severiano Peterson
== END 2018-03-20 15:15 | disposition home or self-care (01) ==
LOC: 3BNU 21:35 → EMEROOARM 21:35 → SUATTDRO 23:34 → 3BNU 03-19 00:35
PROVIDERS: ADMIT Internal Medicine; ATTEND Internal Medicine